=== PATIENT | male | born 1970 | race Caucasian/White ===

== ENCOUNTER 2024-11-28 19:27 | Inpatient (IN) | payer OTHER ==
[~2024-11-28] VITALS: Ht 162.6 cm; Wt 101.5 kg
[2024-11-28 19:56] LABS: BASOPHILS # (AUTO) 0.1 X10'3 (0-0.2); BASOPHILS % (AUTO) 0.7 % (0-1); EOSINOPHILS # (AUTO) 0.1 X10'3 (0-0.9); EOSINOPHILS % (AUTO) 0.4 % (0-6); HEMATOCRIT 43.6 % (42.0-52.0); HEMOGLOBIN 14.8 g/dl (14.0-17.9); LYMPHOCYTES # (AUTO) 1.4 X10'3 (1.1-4.8); LYMPHOCYTES % (AUTO) 11.5 % (21-51); MEAN CORPUSCULAR HEMOGLOBIN 32.5 PG (27.0-31.0); MEAN CORPUSCULAR VOLUME 95.5 FL (78-98); MEAN PLATELET VOLUME 7.3 FL (7.4-10.4); MONOCYTES # (AUTO) 0.8 X10'3 (0-0.9); MONOCYTES % (AUTO) 6.8 % (2-12); NEUTROPHILS # (AUTO) 9.8 X10'3 (1.8-7.7); NEUTROPHILS % (AUTO) 80.6 % (42-75); PLATELET COUNT 189 X10'3 (140-440); RED BLOOD COUNT 4.57 X10'6 (4.70-6.10); WHITE BLOOD COUNT 12.2 X10'3 (4.5-11.0)
[2024-11-28] MEDS ORDERED: iohexol 300mg/ml 100ml inj. ONE (20:01)
[2024-11-28 20:08] LABS: ALANINE AMINOTRANSFERASE 33 U/L (12-78); ALBUMIN/GLOBULIN RATIO 0.9 (1.1-1.5); ANION GAP 17 (8-16); ASPARTATE AMINO TRANSFERASE 51 U/L (10-37); BILIRUBIN,TOTAL 0.6 MG/DL (0.1-1.0); BLOOD UREA NITROGEN 10 MG/DL (7-18); BUN/CREATININE RATIO 8.3 (10.0-20.0); CALCIUM 8.7 MG/DL (8.5-10.1); CHLORIDE 97 MMOL/L (99-107); GLUCOSE 120 MG/DL (70-104); POTASSIUM 3.4 MMOL/L (3.5-5.1); SODIUM 135 MMOL/L (135-145); TOTAL CARBON DIOXIDE 21.5 MMOL/L (24-32); TOTAL PROTEIN 8.4 G/DL (6.4-8.2); eCRCL 60 ML/MIN; eGFR 63 ML/MIN
[2024-11-28 20:13] LABS: ALKALINE PHOSPHATASE 122 IU/L (46-116)
[2024-11-28] MEDS: morphine 4 MG/ML inj SYRINge IV ONE (20:38)
[2024-11-28] MEDS: ondansetron/PF 4mg/2ml inj IV PRN (20:38)
[2024-11-28] MEDS ORDERED: potassium Cl 20 mEq SR tablet PO PRN (23:25)
[2024-11-28] MEDS ORDERED: magnesium Cl slow-release 64mg tablet PO PRN (23:25)
[2024-11-28] MEDS ORDERED: magnesium sulf-water 2g/50mL 50 ML IV PRN (23:25)
[2024-11-28] MEDS ORDERED: potassium Cl 40MEQ/1/2NS 520ml 520 ML IV PRN (23:25)
[2024-11-28] MEDS ORDERED: docusate sod 100mg capsule PO PRN (23:25)
[2024-11-28] MEDS ORDERED: mag hydrox/Alum hydrox/simeth 30ml oral suspension PO PRN (23:25)
[2024-11-28] MEDS ORDERED: magnesium sulf-water 4G/100mL 100 ML IV PRN (23:25)
[2024-11-28] MEDS ORDERED: acetaminophen 325mg tablet PO PRN (23:25)
[2024-11-28] MEDS ORDERED: ondansetron/PF 4mg/2ml inj IV PRN (23:25)
[2024-11-28] MEDS ORDERED: magnesium hydroxide 30ml (MOM) UD suspension PO PRN (23:25)
[2024-11-29] VITALS (18 sets, daily range): BP systolic 119–137; BP diastolic 65–78; PULSE 61–110; RESP 14–20; TEMP 97.5–98; O2SAT 92–98
[2024-11-29] MEDS ORDERED: NO HOME MEDS (00:19)
[2024-11-29] MEDS: ketorolac trometh 30MG/ML vial 30 MG/ML VIAL IV PRN (00:22)
[2024-11-29] MEDS: potassium Cl 20 mEq SR tablet PO PRN (00:22)
[2024-11-29] MEDS: ipratropium 0.5 MG/2.5ML nebule IH SCH (03:00)
[2024-11-29] MEDS: oxyCODONE/APAP 5-325mg tablet PO PRN (03:37)
[2024-11-29 07:40] LABS: BASOPHILS # (AUTO) 0.1 X10'3 (0-0.2); BASOPHILS % (AUTO) 0.5 % (0-1); EOSINOPHILS % (AUTO) 0.4 % (0-6); HEMATOCRIT 39.4 % (42.0-52.0); HEMOGLOBIN 13.5 g/dl (14.0-17.9); LYMPHOCYTES # (AUTO) 1.2 X10'3 (1.1-4.8); LYMPHOCYTES % (AUTO) 12.5 % (21-51); MEAN CORPUSCULAR HEMOGLOBIN 32.6 PG (27.0-31.0); MEAN CORPUSCULAR HGB CONC 34.3 g/dL (33.0-36.5); MEAN PLATELET VOLUME 7.7 FL (7.4-10.4); MONOCYTES # (AUTO) 1.2 X10'3 (0-0.9); MONOCYTES % (AUTO) 12.3 % (2-12); NEUTROPHILS # (AUTO) 7.2 X10'3 (1.8-7.7); NEUTROPHILS % (AUTO) 74.3 % (42-75); PLATELET COUNT 162 X10'3 (140-440); RED BLOOD COUNT 4.15 X10'6 (4.70-6.10); WHITE BLOOD COUNT 9.7 X10'3 (4.5-11.0)
[2024-11-29 07:48] LABS: APTT 25 SECONDS (22-32); PROTHROMBIN TIME 10.3 SECONDS (9.0-12.0)
[2024-11-29] MEDS: K and/or MAG REPLACEMENT MC SCH (08:00)
[2024-11-29 08:21] LABS: ALANINE AMINOTRANSFERASE 33 U/L (12-78); ALBUMIN 3.5 G/DL (3.4-5.0); ALBUMIN/GLOBULIN RATIO 0.9 (1.1-1.5); ALKALINE PHOSPHATASE 106 IU/L (46-116); ANION GAP 18 (8-16); ASPARTATE AMINO TRANSFERASE 42 U/L (10-37); BILIRUBIN,TOTAL 0.9 MG/DL (0.1-1.0); BLOOD UREA NITROGEN 12 MG/DL (7-18); BUN/CREATININE RATIO 12.6 (10.0-20.0); CALCIUM 8.6 MG/DL (8.5-10.1); CHLORIDE 100 MMOL/L (99-107); CHOL/HDL RATIO 1.5 (0.00-4.99); CHOLESTEROL 152 MG/DL (0-200); CREATININE 0.95 MG/DL (0.60-1.10); GLUCOSE 89 MG/DL (70-104); HDL CHOLESTEROL 103 MG/DL (35-60); LDL CHOLESTEROL 40 MG/DL (50-100); MAGNESIUM 2.1 MG/DL (1.5-2.4); POTASSIUM 4.4 MMOL/L (3.5-5.1); SODIUM 136 MMOL/L (135-145); TOTAL CARBON DIOXIDE 17.8 MMOL/L (24-32); TOTAL PROTEIN 7.5 G/DL (6.4-8.2); TRIGLYCERIDES 46 MG/DL (20-135); eCRCL 75 ML/MIN; eGFR 83 ML/MIN
[2024-11-29 08:41] LABS: HEMOGLOBIN A1C 4.8 % (4.5-6.2)
[2024-11-29] MEDS: pantoprazole 40mg Tablet.DR PO SCH (08:49)
[2024-11-29] MEDS ORDERED: LORazepam 1 MG tablet PO PRN (10:25)
[2024-11-29] MEDS ORDERED: LORazepam 2 mg/ml vial IV PRN (10:25)
[2024-11-29] MEDS ORDERED: haloperidol 5mg tablet PO PRN (10:25)
[2024-11-29] MEDS ORDERED: haloperidol lactate 5mg/ml inj IM PRN (10:25)
[2024-11-29] MEDS: thiamine 100mg/ml 2ml inj. IV SCH (14:34)
[2024-11-29] MEDS: heparin, porcine 5000 units/ml vial SQ SCH (16:00)
[2024-11-30] VITALS (17 sets, daily range): BP systolic 114–138; BP diastolic 76–83; PULSE 82–96; RESP 12–21; TEMP 97.8–98.7; O2SAT 94–98
[2024-11-30 06:41] LABS: BASOPHILS % (AUTO) 0.6 % (0-1); EOSINOPHILS # (AUTO) 0.2 X10'3 (0-0.9); EOSINOPHILS % (AUTO) 2.5 % (0-6); HEMATOCRIT 36.6 % (42.0-52.0); HEMOGLOBIN 12.5 g/dl (14.0-17.9); LYMPHOCYTES # (AUTO) 0.8 X10'3 (1.1-4.8); LYMPHOCYTES % (AUTO) 11.9 % (21-51); MEAN CORPUSCULAR HEMOGLOBIN 32.5 PG (27.0-31.0); MEAN CORPUSCULAR HGB CONC 34.1 g/dL (33.0-36.5); MEAN CORPUSCULAR VOLUME 95.2 FL (78-98); MEAN PLATELET VOLUME 7.8 FL (7.4-10.4); MONOCYTES % (AUTO) 14.2 % (2-12); NEUTROPHILS # (AUTO) 4.8 X10'3 (1.8-7.7); NEUTROPHILS % (AUTO) 70.8 % (42-75); PLATELET COUNT 104 X10'3 (140-440); RED BLOOD COUNT 3.84 X10'6 (4.70-6.10); RED CELL DISTRIBUTION WIDTH 14.8 % (11.5-14.5); WHITE BLOOD COUNT 6.8 X10'3 (4.5-11.0)
[2024-11-30 07:13] LABS: ALANINE AMINOTRANSFERASE 28 U/L (12-78); ALBUMIN 3.2 G/DL (3.4-5.0); ALBUMIN/GLOBULIN RATIO 0.8 (1.1-1.5); ALKALINE PHOSPHATASE 96 IU/L (46-116); ANION GAP 9 (8-16); ASPARTATE AMINO TRANSFERASE 33 U/L (10-37); BLOOD UREA NITROGEN 14 MG/DL (7-18); BUN/CREATININE RATIO 14.7 (10.0-20.0); CALCIUM 8.7 MG/DL (8.5-10.1); CHLORIDE 98 MMOL/L (99-107); CREATININE 0.95 MG/DL (0.60-1.10); GLUCOSE 111 MG/DL (70-104); MAGNESIUM 1.9 MG/DL (1.5-2.4); POTASSIUM 4.1 MMOL/L (3.5-5.1); SODIUM 131 MMOL/L (135-145); TOTAL CARBON DIOXIDE 24.1 MMOL/L (24-32); TOTAL PROTEIN 7.1 G/DL (6.4-8.2); eCRCL 75 ML/MIN; eGFR 83 ML/MIN
[2024-11-30] MEDS: folic acid 1mg/0.2ml inj IV SCH (11:35)
[2024-11-30] MEDS: metoprolol tartrate 12.5mg (1/2 tablet) PO SCH (11:37)
[2024-12-01 02:00] VITALS: BP 143/83; PULSE 90; RESP 21; TEMP 98.1; O2SAT 97
[2024-12-01 06:11] LABS: BASOPHILS % (AUTO) 0.8 % (0-1); EOSINOPHILS # (AUTO) 0.2 X10'3 (0-0.9); EOSINOPHILS % (AUTO) 4.4 % (0-6); HEMATOCRIT 34.2 % (42.0-52.0); HEMOGLOBIN 12.1 g/dl (14.0-17.9); LYMPHOCYTES # (AUTO) 0.9 X10'3 (1.1-4.8); LYMPHOCYTES % (AUTO) 15.2 % (21-51); MEAN CORPUSCULAR HEMOGLOBIN 33.6 PG (27.0-31.0); MEAN CORPUSCULAR HGB CONC 35.4 g/dL (33.0-36.5); MEAN CORPUSCULAR VOLUME 94.9 FL (78-98); MEAN PLATELET VOLUME 8.2 FL (7.4-10.4); MONOCYTES # (AUTO) 0.8 X10'3 (0-0.9); MONOCYTES % (AUTO) 13.4 % (2-12); NEUTROPHILS # (AUTO) 3.7 X10'3 (1.8-7.7); NEUTROPHILS % (AUTO) 66.2 % (42-75); PLATELET COUNT 92 X10'3 (140-440); RED CELL DISTRIBUTION WIDTH 14.4 % (11.5-14.5); WHITE BLOOD COUNT 5.6 X10'3 (4.5-11.0)
[2024-12-01 06:27] LABS: ALANINE AMINOTRANSFERASE 25 U/L (12-78); ALBUMIN/GLOBULIN RATIO 0.8 (1.1-1.5); ALKALINE PHOSPHATASE 93 IU/L (46-116); ANION GAP 8 (8-16); ASPARTATE AMINO TRANSFERASE 31 U/L (10-37); BILIRUBIN,TOTAL 1.4 MG/DL (0.1-1.0); BLOOD UREA NITROGEN 12 MG/DL (7-18); BUN/CREATININE RATIO 12.5 (10.0-20.0); CALCIUM 8.6 MG/DL (8.5-10.1); CHLORIDE 98 MMOL/L (99-107); CREATININE 0.96 MG/DL (0.60-1.10); GLUCOSE 94 MG/DL (70-104); MAGNESIUM 1.7 MG/DL (1.5-2.4); POTASSIUM 3.9 MMOL/L (3.5-5.1); SODIUM 131 MMOL/L (135-145); TOTAL CARBON DIOXIDE 24.6 MMOL/L (24-32); TOTAL PROTEIN 6.9 G/DL (6.4-8.2); eCRCL 75 ML/MIN; eGFR 82 ML/MIN
[2024-12-01 06:30] VITALS: BP 130/84; PULSE 79; RESP 13; TEMP 98.1; O2SAT 97
[2024-12-01 07:32] VITALS: PULSE 91; RESP 20; O2SAT 96
[2024-12-01] MEDS ORDERED: LOP12.5T PO (09:44)
[2024-12-01] MEDS ORDERED: TRAM50TA2 PO (10:40)
[2024-12-01 10:46] VITALS: BP 125/75; PULSE 80; RESP 17; TEMP 97.9; O2SAT 100
[2024-12-03] MEDS ORDERED: thiamine 100mg tablet PO SCH (08:00)
[2024-12-04] MEDS ORDERED: folic acid 1mg tablet PO SCH (08:00)
== END 2024-12-01 14:03 | disposition home or self-care (01) | DRG 183 ==
LOC: ER 19:28 → ED HOLD 23:35 → PCU 3S 11-29 00:39
PROVIDERS: ADMIT Surgery Surgical Critical Care; ATTEND Internal Medicine
PROC: BW251ZZ Computerized Tomography (CT Scan) of Chest, Abdomen and Pelvis using Low Osmolar Contrast (ICD-10-PCS; principal; 2024-11-28)
DX: S22.5XXA Flail chest, initial encounter for closed fracture (principal); S27.2XXA Traumatic hemopneumothorax, initial encounter; T79.7XXA Traumatic subcutaneous emphysema, initial encounter; S27.321A Contusion of lung, unilateral, initial encounter; M25.512 Pain in left shoulder; J44.9 Chronic obstructive pulmonary disease, unspecified; E66.812 Obesity, class 2; E11.65 Type 2 diabetes mellitus with hyperglycemia; G47.30 Sleep apnea, unspecified; E88.09 Other disorders of plasma-protein metabolism, not elsewhere classified; F10.10 Alcohol abuse, uncomplicated; Y90.9 Presence of alcohol in blood, level not specified; E87.6 Hypokalemia; E87.8 Other disorders of electrolyte and fluid balance, not elsewhere classified; D64.9 Anemia, unspecified; I10 Essential (primary) hypertension; V80.010A Animal-rider injured by fall from or being thrown from horse in noncollision accident, initial encounter; Y92.89 Other specified places as the place of occurrence of the external cause; Y99.8 Other external cause status; Z68.39 Body mass index [BMI] 39.0-39.9, adult; Y93.52 Activity, horseback riding
CPT/HCPCS: 36415; 70200; 70450; 71045; 71250; 71260; 72125; 73564; 74177; 80053; 80061; 83036; 83735; 84484; 85025; 85610; 85730; 86885; 86900; 86901; 87081; 93005; 94640; 94760; 97161; 97530; 99285; A4615; G0378; J1644; J1885; J2270; J2405; J3411; J3490; Q9967